=== PATIENT | female | born 1980 | race Caucasian/White ===

== ENCOUNTER 2020-11-04 13:09 | Inpatient (IN) | payer MEDICAID ==
[~2020-11-04] VITALS: Ht 162.6 cm; Wt 68.2 kg
[2020-11-04] MEDS ORDERED: morphine 4 MG/ML inj SYRINge IV ONE (14:20)
[2020-11-04] MEDS ORDERED: normal saline 1000ML IV soln IVB ONE ×2 (14:20→16:15)
[2020-11-04 15:05] LABS: BASOPHILS % (AUTO) 0.1 % (0-1); EOSINOPHILS % (AUTO) 0 % (0-6); HEMATOCRIT 46.8 % (35.0-45.0); HEMOGLOBIN 15.9 g/dl (12.0-16.0); LYMPHOCYTES # (AUTO) 0.3 X10'3 (1.1-4.8); LYMPHOCYTES % (AUTO) 1.2 % (21-51); MEAN CORPUSCULAR HEMOGLOBIN 31.4 PG (27.0-31.0); MEAN CORPUSCULAR HGB CONC 33.9 g/dL (33.0-36.5); MEAN CORPUSCULAR VOLUME 92.6 FL (78-98); MEAN PLATELET VOLUME 7.5 FL (7.4-10.4); MONOCYTES # (AUTO) 0.5 X10'3 (0-0.9); MONOCYTES % (AUTO) 2.3 % (2-12); NEUTROPHILS % (AUTO) 96.4 % (42-75); PLATELET COUNT 244 X10'3 (140-440); RED BLOOD COUNT 5.05 X10'6 (4.20-5.60); RED CELL DISTRIBUTION WIDTH 14.7 % (11.5-14.5); WHITE BLOOD COUNT 21.8 X10'3 (4.5-11.0)
[2020-11-04 15:17] LABS: PARTIAL THROMBOPLASTIN TIME 37 SECONDS (22-32)
[2020-11-04 15:20] LABS: ALANINE AMINOTRANSFERASE 28 U/L (12-78); ALBUMIN 3.1 G/DL (3.4-5.0); ALBUMIN/GLOBULIN RATIO 0.6 (1.1-1.5); ALKALINE PHOSPHATASE 91 IU/L (46-116); ANION GAP 13 (8-16); ASPARTATE AMINO TRANSFERASE 25 U/L (10-37); BILIRUBIN,TOTAL 0.4 MG/DL (0.1-1.0); BLOOD UREA NITROGEN 27 MG/DL (7-18); BUN/CREATININE RATIO 23.5 (6.6-38.0); CALCIUM 8.6 MG/DL (8.5-10.1); CHLORIDE 97 MMOL/L (99-107); CREATININE 1.15 MG/DL (0.40-0.90); GLUCOSE 98 MG/DL (70-104); POTASSIUM 3.7 MMOL/L (3.5-5.1); SODIUM 134 MMOL/L (135-145); TOTAL CARBON DIOXIDE 23.9 MMOL/L (24-32); TOTAL PROTEIN 8.2 G/DL (6.4-8.2); eGFR 52 ML/MIN
--- NOTE | 2020-11-04 15:22 | NUR ---
PATIENT LEFT TO CT SCAN
[2020-11-04 15:23] LABS: ANISOCYTOSIS 1+; PLATELET ESTIMATE NORMAL; TOTAL CELLS COUNTED 100
[2020-11-04 15:29] LABS: ETHANOL < 0.010 GM/DL (0.0-0.010); LIPASE < 50 U/L (73-393); MAGNESIUM 1.6 MG/DL (1.5-2.4); PHOSPHORUS 3.6 MG/DL (2.3-4.5); TROPONIN I < 0.04 NG/ML (0.0-0.05)
[2020-11-04] MEDS ORDERED: normal saline 1000ML IV soln IV ONE (15:30)
[2020-11-04] MEDS ORDERED: CefTRIAXone 2gm/D5W 50ml BAG 50 ML IV ONE ×2 (15:35→16:05)
[2020-11-04] MEDS ORDERED: acetaminophen 325mg tablet PO PRN ×2 (16:45)
[2020-11-04] MEDS ORDERED: mag hydrox/Alum hydrox/simeth 30ml oral suspension PO PRN (16:45)
[2020-11-04] MEDS ORDERED: magnesium 4gm in 100ml NS 100 ML IV PRN (16:45)
[2020-11-04] MEDS ORDERED: magnesium 2GM in 50ml NS 50 ML IV PRN (16:45)
[2020-11-04] MEDS ORDERED: magnesium hydroxide 30ml (MOM) UD suspension PO PRN (16:45)
[2020-11-04] MEDS ORDERED: HYDROcodone/acetaminophen 5mg/325mg tablet PO PRN (16:45)
[2020-11-04] MEDS ORDERED: potassium Cl 20 mEq SR tablet PO PRN (16:45)
[2020-11-04] MEDS ORDERED: potassium Cl 40MEQ/1/2NS 520ml 520 ML IV PRN ×2 (16:45)
[2020-11-04] MEDS: clindamycin 600mg/D5W 50ml 50 ML IV SCH (20:10)
[2020-11-04] MEDS: normal saline 1000ml 1,000 ML IV SCH (20:10)
[2020-11-04] MEDS: K and/or MAG REPLACEMENT MC SCH (20:31)
[2020-11-04 21:11] LABS: CLARITY,URINE CLEAR (Clear); COLOR,URINE YELLOW (Yellow); GLUCOSE, URINE NEGATIVE (Neg); KETONES,URINE 15 mg/dl (Neg); LEUKOCYTE ESTERASE ,URINE NEGATIVE (Neg); NITRITES, URINE NEGATIVE (Neg); OCCULT BLOOD,URINE SMALL (Neg); PROTEIN,URINE 30 mg/dl (Neg); UROBILINOGEN,URINE 0.2 E.U/dL (0.2-1.0)
[2020-11-04 21:31] LABS: BACTERIA,URINE FEW /HPF (Neg); RBC,URINE 0-2 /HPF (0-2); SQUAMOUS EPITHELIAL CELL,UR FEW /LPF (FEW); UA COLLECTION TYPE FOLEY CATH; WBC,URINE 0-4 /HPF (0-4)
--- NOTE | 2020-11-04 21:45 | NUR ---
Patient in room ED 7. I have received report from CHANA FROM ER and had the opportunity to ask questions and assume patient care.
[2020-11-04] MEDS ORDERED: NO HOME MEDS (21:50)
[2020-11-04 21:59] LABS: URINE AMPHETAMINE SCREEN POSITIVE (Neg); URINE BARBITUATE SCREEN NEGATIVE (Neg); URINE BENZODIAZEPINES SCREEN NEGATIVE (Neg); URINE CANNABINOID SCREEN NEGATIVE (Neg); URINE COCAINE SCREEN NEGATIVE (Neg); URINE METHADONE SCREEN NEGATIVE (Neg); URINE OPIATE SCREEN POSITIVE (Neg); URINE PHENCYCLIDINE SCREEN NEGATIVE (Neg)
[2020-11-04 22:00] VITALS: BP 102/69
[2020-11-04] MEDS: HYDROcodone/acetaminophen 10/325mg tab PO PRN (22:20)
--- NOTE | 2020-11-04 22:30 | NUR ---
PATIENT STATES SHE CANNOT OPEN HER EYES. SHE STATES THAT SHE NOTICED HER EYE STARTING CLOSING A COUPLE DAYS AGO. SHE IS FEELING TIRED AND WANTS TO REST.
[2020-11-05 00:04] VITALS: BP 105/63
[2020-11-05] MEDS: clindamycin 600mg/D5W 50ml 50 ML IV SCH ×4 (02:12→20:31)
[2020-11-05] MEDS: normal saline 1000ml 1,000 ML IV SCH ×3 (02:45→19:15)
[2020-11-05] MEDS: HYDROcodone/acetaminophen 10/325mg tab PO PRN ×3 (05:14→22:24)
--- NOTE | 2020-11-05 05:49 | NUR ---
PAGER ID: [phone] MESSAGE: MIGUEL YBARRA- [id number], 345 b, POSITIVE BLOOD CULTURES GM +COCCI PAIRS SHORT CHAINS IN AEROBIC IV START. EXT [id number]
[2020-11-05 06:23] LABS: BASOPHILS % (AUTO) 0.1 % (0-1); EOSINOPHILS # (AUTO) 0.1 X10'3 (0-0.9); EOSINOPHILS % (AUTO) 0.6 % (0-6); HEMATOCRIT 35.7 % (35.0-45.0); HEMOGLOBIN 11.8 g/dl (12.0-16.0); LYMPHOCYTES # (AUTO) 0.5 X10'3 (1.1-4.8); LYMPHOCYTES % (AUTO) 2.5 % (21-51); MEAN CORPUSCULAR HEMOGLOBIN 30.7 PG (27.0-31.0); MEAN PLATELET VOLUME 7.9 FL (7.4-10.4); MONOCYTES # (AUTO) 0.6 X10'3 (0-0.9); MONOCYTES % (AUTO) 3.4 % (2-12); NEUTROPHILS # (AUTO) 17.9 X10'3 (1.8-7.7); NEUTROPHILS % (AUTO) 93.4 % (42-75); PLATELET COUNT 209 X10'3 (140-440); RED BLOOD COUNT 3.84 X10'6 (4.20-5.60); RED CELL DISTRIBUTION WIDTH 14.6 % (11.5-14.5); WHITE BLOOD COUNT 19.1 X10'3 (4.5-11.0)
[2020-11-05 06:30] VITALS: BP 90/52
--- NOTE | 2020-11-05 06:30 | NUR ---
Patient in room [facility]. I have received report from EDDIE Wilson and had the opportunity to ask questions and assume patient care.
--- NOTE | 2020-11-05 06:36 | NUR ---
Problems reprioritized. Patient report given, questions answered & plan of care reviewed with CHANTAL RN.
[2020-11-05 06:48] LABS: ALANINE AMINOTRANSFERASE 20 U/L (12-78); ALBUMIN 2.1 G/DL (3.4-5.0); ALBUMIN/GLOBULIN RATIO 0.5 (1.1-1.5); ALKALINE PHOSPHATASE 78 IU/L (46-116); ANION GAP 7 (8-16); ASPARTATE AMINO TRANSFERASE 16 U/L (10-37); BILIRUBIN,TOTAL 0.3 MG/DL (0.1-1.0); BLOOD UREA NITROGEN 14 MG/DL (7-18); BUN/CREATININE RATIO 15.6 (6.6-38.0); CALCIUM 7.7 MG/DL (8.5-10.1); CHLORIDE 103 MMOL/L (99-107); GLUCOSE 86 MG/DL (70-104); MAGNESIUM 1.8 MG/DL (1.5-2.4); POTASSIUM 3.1 MMOL/L (3.5-5.1); SODIUM 136 MMOL/L (135-145); TOTAL CARBON DIOXIDE 25.7 MMOL/L (24-32); TOTAL PROTEIN 6.2 G/DL (6.4-8.2); eGFR 69 ML/MIN
[2020-11-05 06:52] LABS: TOTAL CELLS COUNTED 100
[2020-11-05 06:54] LABS: BURR CELLS FEW; PLATELET ESTIMATE NORMAL; POLYCHROMASIA FEW
[2020-11-05] MEDS: K and/or MAG REPLACEMENT MC SCH ×2 (07:29→20:00)
[2020-11-05] MEDS ORDERED: vancomycin inj 1,000 MG in normal saline 250ml IV soln 250 ML IV ONE (08:05)
[2020-11-05] MEDS: potassium Cl 20 mEq SR tablet PO PRN ×3 (10:54→21:11)
[2020-11-05 11:00] VITALS: BP 91/60
[2020-11-05] MEDS: vancomycin/NS 1 GM ADD-VANTAGE 250 ML IV SCH ×3 (11:56→21:10)
--- NOTE | 2020-11-05 18:40 | NUR ---
Problems reprioritized. Patient report given, questions answered & plan of care reviewed with Cynthia RN.
[2020-11-05 19:30] VITALS: BP 96/63
[2020-11-05] MEDS: levetiracetam 250mg tablet PO SCH (21:12)
[2020-11-05] MEDS: lactobacillus rhamnosus 10,000 MMU CELLS/CAPSULE PO SCH (21:12)
[2020-11-05] MEDS: polyvinyl alcohol ophthalmic drops 15ml bottle EACHEYE SCH (21:12)
[2020-11-05] MEDS: ondansetron/PF 4mg/2ml inj IV PRN (22:31)
[2020-11-05 23:30] VITALS: BP 92/52
[2020-11-06] MEDS: clindamycin 600mg/D5W 50ml 50 ML IV SCH ×4 (02:11→20:40)
[2020-11-06] MEDS: polyvinyl alcohol ophthalmic drops 15ml bottle EACHEYE SCH ×4 (02:12→20:43)
[2020-11-06] MEDS: HYDROcodone/acetaminophen 10/325mg tab PO PRN ×3 (02:26→23:44)
--- NOTE | 2020-11-06 04:00 | NUR ---
refused neuro checks Addendum: 11/08/20 at 0730 by Vane Vasquez RN Amended: Links added.
--- NOTE | 2020-11-06 06:00 | NUR ---
Patient in room [facility]. I have received report from EDDIE Marie and had the opportunity to ask questions and assume patient care.
[2020-11-06 06:05] LABS: EOSINOPHILS # (AUTO) 0.3 X10'3 (0-0.9); HEMOGLOBIN 10.4 g/dl (12.0-16.0); MEAN PLATELET VOLUME 7.6 FL (7.4-10.4); NEUTROPHILS # (AUTO) 10.7 X10'3 (1.8-7.7)
[2020-11-06 06:09] LABS: BASOPHILS % (AUTO) 0.2 % (0-1); EOSINOPHILS % (AUTO) 2.1 % (0-6); LYMPHOCYTES # (AUTO) 0.9 X10'3 (1.1-4.8); MEAN CORPUSCULAR HEMOGLOBIN 31.6 PG (27.0-31.0); MEAN CORPUSCULAR HGB CONC 33.5 g/dL (33.0-36.5); MEAN CORPUSCULAR VOLUME 94.1 FL (78-98); MONOCYTES # (AUTO) 0.9 X10'3 (0-0.9); MONOCYTES % (AUTO) 6.9 % (2-12); NEUTROPHILS % (AUTO) 83.8 % (42-75); PLATELET COUNT 183 X10'3 (140-440); RED CELL DISTRIBUTION WIDTH 14.8 % (11.5-14.5); WHITE BLOOD COUNT 12.8 X10'3 (4.5-11.0)
[2020-11-06 06:30] LABS: ALANINE AMINOTRANSFERASE 18 U/L (12-78); ALBUMIN 1.8 G/DL (3.4-5.0); ALBUMIN/GLOBULIN RATIO 0.5 (1.1-1.5); ALKALINE PHOSPHATASE 68 IU/L (46-116); ANION GAP 8 (8-16); ASPARTATE AMINO TRANSFERASE 15 U/L (10-37); BILIRUBIN,TOTAL 0.2 MG/DL (0.1-1.0); BLOOD UREA NITROGEN 9 MG/DL (7-18); BUN/CREATININE RATIO 11.8 (6.6-38.0); CALCIUM 7.8 MG/DL (8.5-10.1); CHLORIDE 108 MMOL/L (99-107); CREATININE 0.76 MG/DL (0.40-0.90); GLUCOSE 76 MG/DL (70-104); MAGNESIUM 2.2 MG/DL (1.5-2.4); POTASSIUM 3.5 MMOL/L (3.5-5.1); SODIUM 140 MMOL/L (135-145); TOTAL CARBON DIOXIDE 23.7 MMOL/L (24-32); TOTAL PROTEIN 5.6 G/DL (6.4-8.2); eGFR 83 ML/MIN
[2020-11-06 07:00] VITALS: BP 102/67
[2020-11-06] MEDS: lactobacillus rhamnosus 10,000 MMU CELLS/CAPSULE PO SCH ×2 (07:27→20:42)
[2020-11-06] MEDS: levetiracetam 250mg tablet PO SCH ×2 (07:27→20:42)
[2020-11-06] MEDS: normal saline 1000ml 1,000 ML IV SCH ×2 (07:36→19:13)
[2020-11-06] MEDS: K and/or MAG REPLACEMENT MC SCH ×2 (08:00→20:00)
[2020-11-06] MEDS: vancomycin/NS 1 GM ADD-VANTAGE 250 ML IV SCH ×2 (09:56→21:09)
[2020-11-06 11:00] VITALS: BP 114/70
--- NOTE | 2020-11-06 18:30 | NUR ---
Problems reprioritized. Patient report given, questions answered & plan of care reviewed with EDDIE John.
--- NOTE | 2020-11-06 18:33 | NUR ---
Patient in room [facility]. I have received report from COLLEEN MORGAN and had the opportunity to ask questions and assume patient care. Addendum: 11/06/20 at 1834 by Dora Costa RN Amended: Links added.
[2020-11-06 19:00] VITALS: BP 128/98
[2020-11-06 19:30] VITALS: BP 128/98
[2020-11-06] MEDS ORDERED: VANCOMYCIN LEVEL IV ONE (19:30)
--- NOTE | 2020-11-06 20:15 | NUR ---
pt a/o medicated as ordered and skin care to eye area after using eye drops. then per pt request vaseline guaze to eyes due to dryness and swelling
--- NOTE | 2020-11-06 21:20 | NUR ---
pt resting on side eyes closed.
[2020-11-06] MEDS ORDERED: vancomycin/NS 500MG ADD-VANT 100 ML IV ONE (23:25)
--- NOTE | 2020-11-06 23:46 | NUR ---
MEDICATED FOR C/O SEVERE HEADACHE WITH NORCO AT THIS TIME.
[2020-11-07] VITALS: BP 120/83
--- NOTE | 2020-11-07 01:05 | NUR ---
pt resting eyes closed appears comfortable without changes.
[2020-11-07] MEDS: clindamycin 600mg/D5W 50ml 50 ML IV SCH ×4 (02:17→20:08)
[2020-11-07] MEDS: polyvinyl alcohol ophthalmic drops 15ml bottle EACHEYE SCH ×4 (02:18→21:13)
--- NOTE | 2020-11-07 02:24 | NUR ---
abx infusing and eye care done as ordered.
[2020-11-07] MEDS: normal saline 1000ml 1,000 ML IV SCH ×2 (05:04→14:50)
[2020-11-07 05:54] LABS: BASOPHILS % (AUTO) 0.3 % (0-1); EOSINOPHILS # (AUTO) 0.2 X10'3 (0-0.9); EOSINOPHILS % (AUTO) 3.5 % (0-6); HEMATOCRIT 31.9 % (35.0-45.0); HEMOGLOBIN 10.9 g/dl (12.0-16.0); LYMPHOCYTES % (AUTO) 14.2 % (21-51); MEAN CORPUSCULAR HEMOGLOBIN 31.5 PG (27.0-31.0); MEAN CORPUSCULAR HGB CONC 34.2 g/dL (33.0-36.5); MEAN CORPUSCULAR VOLUME 92.4 FL (78-98); MEAN PLATELET VOLUME 7.7 FL (7.4-10.4); MONOCYTES % (AUTO) 13.8 % (2-12); NEUTROPHILS # (AUTO) 4.9 X10'3 (1.8-7.7); NEUTROPHILS % (AUTO) 68.2 % (42-75); PLATELET COUNT 195 X10'3 (140-440); RED BLOOD COUNT 3.45 X10'6 (4.20-5.60); RED CELL DISTRIBUTION WIDTH 14.2 % (11.5-14.5); WHITE BLOOD COUNT 7.1 X10'3 (4.5-11.0)
--- NOTE | 2020-11-07 06:00 | NUR ---
Patient in room [facility]. I have received report from EDDIE John and had the opportunity to ask questions and assume patient care.
--- NOTE | 2020-11-07 06:04 | NUR ---
Problems reprioritized. Patient report given, questions answered & plan of care reviewed with COLLEEN MORGAN. Addendum: 11/07/20 at 0604 by Dora Costa RN Amended: Links added.
[2020-11-07 06:12] LABS: ALANINE AMINOTRANSFERASE 23 U/L (12-78); ALBUMIN 1.8 G/DL (3.4-5.0); ALBUMIN/GLOBULIN RATIO 0.4 (1.1-1.5); ALKALINE PHOSPHATASE 73 IU/L (46-116); ANION GAP 8 (8-16); ASPARTATE AMINO TRANSFERASE 19 U/L (10-37); BILIRUBIN,TOTAL 0.2 MG/DL (0.1-1.0); BLOOD UREA NITROGEN 8 MG/DL (7-18); BUN/CREATININE RATIO 12.3 (6.6-38.0); CALCIUM 7.9 MG/DL (8.5-10.1); CHLORIDE 108 MMOL/L (99-107); CREATININE 0.65 MG/DL (0.40-0.90); GLUCOSE 89 MG/DL (70-104); MAGNESIUM 1.8 MG/DL (1.5-2.4); POTASSIUM 3.4 MMOL/L (3.5-5.1); SODIUM 140 MMOL/L (135-145); TOTAL CARBON DIOXIDE 24.4 MMOL/L (24-32); TOTAL PROTEIN 5.9 G/DL (6.4-8.2); eGFR > 90 ML/MIN
[2020-11-07 07:00] VITALS: BP 108/80
[2020-11-07] MEDS: ondansetron/PF 4mg/2ml inj IV PRN (07:05)
[2020-11-07] MEDS: levetiracetam 250mg tablet PO SCH ×2 (07:08→20:09)
[2020-11-07] MEDS: lactobacillus rhamnosus 10,000 MMU CELLS/CAPSULE PO SCH ×2 (07:08→20:08)
[2020-11-07] MEDS: HYDROcodone/acetaminophen 10/325mg tab PO PRN ×2 (07:08→20:12)
[2020-11-07] MEDS: K and/or MAG REPLACEMENT MC SCH ×4 (08:52→20:17)
[2020-11-07 11:00] VITALS: BP 132/96
[2020-11-07] MEDS: potassium Cl 20 mEq SR tablet PO PRN (12:30)
[2020-11-07] MEDS ORDERED: potassium Cl 40MEQ/1/2NS 520ml 520 ML IV PRN (18:00)
[2020-11-07] MEDS ORDERED: potassium Cl 20 mEq SR tablet PO PRN ×2 (18:00)
[2020-11-07] MEDS ORDERED: magnesium 4gm in 100ml NS 100 ML IV PRN (18:00)
--- NOTE | 2020-11-07 18:33 | NUR ---
Problems reprioritized. Patient report given, questions answered & plan of care reviewed with Cynthia RN.
--- NOTE | 2020-11-07 18:45 | NUR ---
kirti ashby in room; pt states she ate most everything Addendum: 11/08/20 at 0723 by Vane Vasquez RN Amended: Links added.
[2020-11-07 20:00] VITALS: BP 128/79
[2020-11-07] MEDS: moxifloxacin 0.5% ophthalmic drops 3ml EACHEYE SCH (21:12)
[2020-11-08] VITALS: BP 131/87
[2020-11-08] MEDS: normal saline 1000ml 1,000 ML IV SCH ×3 (00:45→20:40)
[2020-11-08] MEDS: HYDROcodone/acetaminophen 10/325mg tab PO PRN ×5 (00:52→20:40)
[2020-11-08] MEDS: penicillin G potassium inj 2,000,000 UNIT in normal saline 100ml IV soln 100 ML IV SCH ×7 (00:52→23:52)
[2020-11-08] MEDS: polyvinyl alcohol ophthalmic drops 15ml bottle EACHEYE SCH ×4 (02:00→20:40)
[2020-11-08 06:22] LABS: BASOPHILS % (AUTO) 0.5 % (0-1); EOSINOPHILS # (AUTO) 0.2 X10'3 (0-0.9); EOSINOPHILS % (AUTO) 2.6 % (0-6); HEMATOCRIT 35.6 % (35.0-45.0); LYMPHOCYTES # (AUTO) 1.1 X10'3 (1.1-4.8); LYMPHOCYTES % (AUTO) 16.4 % (21-51); MEAN CORPUSCULAR HEMOGLOBIN 30.7 PG (27.0-31.0); MEAN CORPUSCULAR HGB CONC 33.7 g/dL (33.0-36.5); MEAN CORPUSCULAR VOLUME 91.1 FL (78-98); MEAN PLATELET VOLUME 7.9 FL (7.4-10.4); MONOCYTES # (AUTO) 1.4 X10'3 (0-0.9); MONOCYTES % (AUTO) 21.2 % (2-12); NEUTROPHILS # (AUTO) 3.9 X10'3 (1.8-7.7); NEUTROPHILS % (AUTO) 59.3 % (42-75); PLATELET COUNT 225 X10'3 (140-440); RED BLOOD COUNT 3.91 X10'6 (4.20-5.60); RED CELL DISTRIBUTION WIDTH 14.8 % (11.5-14.5); WHITE BLOOD COUNT 6.6 X10'3 (4.5-11.0)
[2020-11-08 06:34] LABS: ALANINE AMINOTRANSFERASE 20 U/L (12-78); ALBUMIN 1.9 G/DL (3.4-5.0); ALBUMIN/GLOBULIN RATIO 0.4 (1.1-1.5); ALKALINE PHOSPHATASE 71 IU/L (46-116); ANION GAP 6 (8-16); ASPARTATE AMINO TRANSFERASE 12 U/L (10-37); BILIRUBIN,TOTAL 0.2 MG/DL (0.1-1.0); BLOOD UREA NITROGEN 5 MG/DL (7-18); BUN/CREATININE RATIO 8.3 (6.6-38.0); CHLORIDE 107 MMOL/L (99-107); GLUCOSE 93 MG/DL (70-104); MAGNESIUM 1.7 MG/DL (1.5-2.4); POTASSIUM 3.9 MMOL/L (3.5-5.1); SODIUM 139 MMOL/L (135-145); TOTAL CARBON DIOXIDE 26.4 MMOL/L (24-32); TOTAL PROTEIN 6.2 G/DL (6.4-8.2); eGFR > 90 ML/MIN
[2020-11-08 07:28] VITALS: BP 138/82
[2020-11-08] MEDS ORDERED: VANCOMYCIN LEVEL IV ONE (07:30)
[2020-11-08] MEDS: K and/or MAG REPLACEMENT MC SCH ×3 (08:00→20:00)
[2020-11-08] MEDS: levetiracetam 250mg tablet PO SCH ×2 (08:11→20:41)
[2020-11-08] MEDS: lactobacillus rhamnosus 10,000 MMU CELLS/CAPSULE PO SCH ×2 (08:11→20:40)
[2020-11-08] MEDS: moxifloxacin 0.5% ophthalmic drops 3ml EACHEYE SCH ×2 (08:11→20:41)
[2020-11-08] MEDS: HYDROmorphone inj. 0.5 MG/0.5 ML DISP.SYRIN IV PRN ×4 (08:14→23:53)
--- NOTE | 2020-11-08 11:02 | NUR ---
Haley primary RN called Dr Rukhsana Corey to clarify that they wanted to CT obits to be done with or without contrast. Dr Corey called back is aware of patient kidney function and would like CT done with IV contrast. Primary RN Haley murray and Lesvia with CT aware they will modify the order. Haley murray to send down CT screening form.
[2020-11-08] MEDS ORDERED: iohexol 300mg/ml 100ml inj. ONE (11:03)
[2020-11-08 11:48] VITALS: BP 146/95
--- NOTE | 2020-11-08 14:38 | NUR ---
PAGER ID: [phone] MESSAGE: Jo Ann Walton 345B Pt. has not had a BM since 1-2. Will give MOM but can she has BID docusate please? Taking many opiates r/t pain. Thank you! Haley [phone]
--- NOTE | 2020-11-08 18:30 | NUR ---
Patient in room [facility]. I have received report from EDDIE De Leon and had the opportunity to ask questions and assume patient care. Addendum: 11/08/20 at 1905 by Brie Wilcox RN Amended: Links added.
--- NOTE | 2020-11-08 18:32 | NUR ---
Gave report to Yulia MORGAN.
[2020-11-08 19:30] VITALS: BP 149/90
[2020-11-09] VITALS: BP 148/88
[2020-11-09] MEDS: polyvinyl alcohol ophthalmic drops 15ml bottle EACHEYE SCH ×5 (02:00→20:08)
[2020-11-09] MEDS: HYDROmorphone inj. 0.5 MG/0.5 ML DISP.SYRIN IV PRN (03:38)
[2020-11-09] MEDS: penicillin G potassium inj 2,000,000 UNIT in normal saline 100ml IV soln 100 ML IV SCH ×5 (03:38→21:19)
[2020-11-09] MEDS: normal saline 1000ml 1,000 ML IV SCH ×2 (05:49→18:54)
[2020-11-09] MEDS: HYDROcodone/acetaminophen 10/325mg tab PO PRN ×4 (05:50→22:48)
--- NOTE | 2020-11-09 06:35 | NUR ---
Problems reprioritized. Patient report given, questions answered & plan of care reviewed with EDDIE JOSHI Addendum: 11/09/20 at 0636 by Brie Wilcox RN Amended: Links added.
--- NOTE | 2020-11-09 06:49 | NUR ---
Patient in room [facility]. I have received report from Sharee MORGAN and had the opportunity to ask questions and assume patient care.
[2020-11-09 08:00] VITALS: BP 149/88
[2020-11-09] MEDS: K and/or MAG REPLACEMENT MC SCH ×4 (08:00→20:00)
[2020-11-09 08:01] LABS: BASOPHILS # (AUTO) 0.1 X10'3 (0-0.2); BASOPHILS % (AUTO) 0.7 % (0-1); EOSINOPHILS # (AUTO) 0.2 X10'3 (0-0.9); EOSINOPHILS % (AUTO) 2.7 % (0-6); HEMATOCRIT 37.6 % (35.0-45.0); HEMOGLOBIN 12.9 g/dl (12.0-16.0); LYMPHOCYTES # (AUTO) 1.1 X10'3 (1.1-4.8); LYMPHOCYTES % (AUTO) 14.7 % (21-51); MEAN CORPUSCULAR HEMOGLOBIN 31.4 PG (27.0-31.0); MEAN CORPUSCULAR HGB CONC 34.2 g/dL (33.0-36.5); MEAN CORPUSCULAR VOLUME 91.8 FL (78-98); MEAN PLATELET VOLUME 7.8 FL (7.4-10.4); MONOCYTES # (AUTO) 1.1 X10'3 (0-0.9); MONOCYTES % (AUTO) 14.9 % (2-12); NEUTROPHILS # (AUTO) 5.1 X10'3 (1.8-7.7); PLATELET COUNT 289 X10'3 (140-440); RED CELL DISTRIBUTION WIDTH 14.7 % (11.5-14.5); WHITE BLOOD COUNT 7.7 X10'3 (4.5-11.0)
[2020-11-09 08:16] LABS: ALANINE AMINOTRANSFERASE 19 U/L (12-78); ALBUMIN/GLOBULIN RATIO 0.4 (1.1-1.5); ALKALINE PHOSPHATASE 72 IU/L (46-116); ASPARTATE AMINO TRANSFERASE 15 U/L (10-37); BILIRUBIN,TOTAL 0.2 MG/DL (0.1-1.0); BLOOD UREA NITROGEN 6 MG/DL (7-18); BUN/CREATININE RATIO 11.3 (6.6-38.0); CALCIUM 8.5 MG/DL (8.5-10.1); CREATININE 0.53 MG/DL (0.40-0.90); GLUCOSE 92 MG/DL (70-104); MAGNESIUM 1.9 MG/DL (1.5-2.4); TOTAL CARBON DIOXIDE 25.6 MMOL/L (24-32); TOTAL PROTEIN 6.6 G/DL (6.4-8.2); eGFR > 90 ML/MIN
[2020-11-09] MEDS: levetiracetam 250mg tablet PO SCH ×2 (08:30→20:03)
[2020-11-09] MEDS: lactobacillus rhamnosus 10,000 MMU CELLS/CAPSULE PO SCH ×2 (08:30→20:03)
[2020-11-09] MEDS: heparin, porcine 5000 units/ml vial SQ SCH ×2 (08:33→20:03)
[2020-11-09] MEDS: moxifloxacin 0.5% ophthalmic drops 3ml EACHEYE SCH ×2 (08:36→20:12)
[2020-11-09 08:47] LABS: ANION GAP 8 (8-16); CHLORIDE 103 MMOL/L (99-107); POTASSIUM 4.1 MMOL/L (3.5-5.1); SODIUM 137 MMOL/L (135-145)
[2020-11-09 09:13] LABS: PLATELET ESTIMATE NORMAL; TOTAL CELLS COUNTED 100
[2020-11-09 11:00] VITALS: BP 141/91
[2020-11-09] MEDS: erythromycin ophthalmic ointment 1gm tube EACHEYE SCH ×4 (11:16→20:10)
--- NOTE | 2020-11-09 17:01 | NUR ---
Initial: Pt had seizure 11/06 and had significant face swelling per physician's notes. Pt has difficulty with vision due top swollen eyes and on mechanical chopped diet per HAND TACKER assessment. Pt seems to be constipated, last BM 11/04. Pt average PO intake is <50% within 3 days, not meeting nutritional needs. Continue mechanical soft diet per HAND TACKER's notes. Continue bowel care as needed. Charles smoothie added to meals as requested by pt.Pt reported she has a good appetite during bedside visit. Feeding assistance not needed as stated by the pt and was validated by the bed side nurse. Addendum: 11/09/20 at 1701 by Chriss Cam RECORD TESTER RD Amended: Links added. Addendum: 11/09/20 at [address] agree with digital media intern note
[2020-11-09 18:00] VITALS: BP 124/78
--- NOTE | 2020-11-09 18:43 | NUR ---
Patient in room [facility]. I have received report from EDDIE Cole and had the opportunity to ask questions and assume patient care.
--- NOTE | 2020-11-09 18:43 | NUR ---
Problems reprioritized. Patient report given, questions answered & plan of care reviewed with Jose Angel MORGAN.
[2020-11-10] VITALS: BP 135/89
[2020-11-10] MEDS: penicillin G potassium inj 2,000,000 UNIT in normal saline 100ml IV soln 100 ML IV SCH ×6 (01:12→20:56)
[2020-11-10] MEDS: HYDROcodone/acetaminophen 10/325mg tab PO PRN ×2 (02:54→21:00)
[2020-11-10] MEDS: erythromycin ophthalmic ointment 1gm tube EACHEYE SCH ×4 (02:59→20:58)
[2020-11-10] MEDS: polyvinyl alcohol ophthalmic drops 15ml bottle EACHEYE SCH ×4 (03:00→20:58)
--- NOTE | 2020-11-10 06:40 | NUR ---
Problems reprioritized. Patient report given, questions answered & plan of care reviewed with EDDIE Mcmullen.
[2020-11-10 07:00] VITALS: BP 144/94
[2020-11-10 07:03] LABS: ALANINE AMINOTRANSFERASE 17 U/L (12-78); ALBUMIN/GLOBULIN RATIO 0.4 (1.1-1.5); ALKALINE PHOSPHATASE 65 IU/L (46-116); ANION GAP 9 (8-16); ASPARTATE AMINO TRANSFERASE 13 U/L (10-37); BILIRUBIN,TOTAL 0.2 MG/DL (0.1-1.0); BLOOD UREA NITROGEN 8 MG/DL (7-18); BUN/CREATININE RATIO 12.3 (6.6-38.0); CALCIUM 8.8 MG/DL (8.5-10.1); CHLORIDE 106 MMOL/L (99-107); CREATININE 0.65 MG/DL (0.40-0.90); GLUCOSE 93 MG/DL (70-104); MAGNESIUM 1.9 MG/DL (1.5-2.4); PHOSPHORUS 3.1 MG/DL (2.3-4.5); SODIUM 139 MMOL/L (135-145); TOTAL CARBON DIOXIDE 24.3 MMOL/L (24-32); TOTAL PROTEIN 6.5 G/DL (6.4-8.2); eGFR > 90 ML/MIN
[2020-11-10 07:46] LABS: BASOPHILS # (AUTO) 0.1 X10'3 (0-0.2); BASOPHILS % (AUTO) 0.8 % (0-1); EOSINOPHILS # (AUTO) 0.2 X10'3 (0-0.9); EOSINOPHILS % (AUTO) 3.8 % (0-6); HEMATOCRIT 38.4 % (35.0-45.0); HEMOGLOBIN 13.1 g/dl (12.0-16.0); LYMPHOCYTES # (AUTO) 1.6 X10'3 (1.1-4.8); LYMPHOCYTES % (AUTO) 24.6 % (21-51); MEAN CORPUSCULAR HEMOGLOBIN 31.5 PG (27.0-31.0); MEAN CORPUSCULAR HGB CONC 34.1 g/dL (33.0-36.5); MEAN CORPUSCULAR VOLUME 92.4 FL (78-98); MONOCYTES # (AUTO) 0.7 X10'3 (0-0.9); MONOCYTES % (AUTO) 10.4 % (2-12); NEUTROPHILS % (AUTO) 60.4 % (42-75); PLATELET COUNT 346 X10'3 (140-440); RED BLOOD COUNT 4.16 X10'6 (4.20-5.60); RED CELL DISTRIBUTION WIDTH 14.8 % (11.5-14.5); WHITE BLOOD COUNT 6.6 X10'3 (4.5-11.0)
[2020-11-10] MEDS: K and/or MAG REPLACEMENT MC SCH ×4 (08:00→20:00)
[2020-11-10] MEDS: levetiracetam 250mg tablet PO SCH ×2 (08:13→20:57)
[2020-11-10] MEDS: lactobacillus rhamnosus 10,000 MMU CELLS/CAPSULE PO SCH ×2 (08:13→20:57)
[2020-11-10] MEDS: heparin, porcine 5000 units/ml vial SQ SCH ×2 (08:14→20:57)
[2020-11-10] MEDS: moxifloxacin 0.5% ophthalmic drops 3ml EACHEYE SCH ×2 (08:17→20:58)
[2020-11-10 09:01] LABS: PLATELET ESTIMATE NORMAL; TOTAL CELLS COUNTED 100
[2020-11-10 11:00] VITALS: BP 116/77
[2020-11-10] MEDS: normal saline 1000ml 1,000 ML IV SCH (16:03)
[2020-11-10 18:00] VITALS: BP 160/89
--- NOTE | 2020-11-10 18:15 | NUR ---
Patient in room [facility]. I have received report from Kemi MORGAN and had the opportunity to ask questions and assume patient care.
[2020-11-11] VITALS: BP 145/73
[2020-11-11] MEDS: penicillin G potassium inj 2,000,000 UNIT in normal saline 100ml IV soln 100 ML IV SCH ×7 (00:54→23:55)
[2020-11-11] MEDS: HYDROcodone/acetaminophen 10/325mg tab PO PRN ×3 (01:00→20:54)
[2020-11-11] MEDS: polyvinyl alcohol ophthalmic drops 15ml bottle EACHEYE SCH ×5 (01:02→20:57)
[2020-11-11 06:25] LABS: HEMOGLOBIN 12.6 g/dl (12.0-16.0); MONOCYTES # (AUTO) 0.5 X10'3 (0-0.9)
[2020-11-11 06:29] LABS: BASOPHILS # (AUTO) 0.1 X10'3 (0-0.2); BASOPHILS % (AUTO) 0.8 % (0-1); EOSINOPHILS # (AUTO) 0.3 X10'3 (0-0.9); EOSINOPHILS % (AUTO) 4.7 % (0-6); HEMATOCRIT 36.5 % (35.0-45.0); LYMPHOCYTES % (AUTO) 30.3 % (21-51); MEAN CORPUSCULAR HEMOGLOBIN 31.6 PG (27.0-31.0); MEAN CORPUSCULAR HGB CONC 34.4 g/dL (33.0-36.5); MEAN CORPUSCULAR VOLUME 91.9 FL (78-98); MEAN PLATELET VOLUME 7.5 FL (7.4-10.4); MONOCYTES % (AUTO) 6.7 % (2-12); NEUTROPHILS # (AUTO) 3.9 X10'3 (1.8-7.7); NEUTROPHILS % (AUTO) 57.5 % (42-75); PLATELET COUNT 395 X10'3 (140-440); RED BLOOD COUNT 3.97 X10'6 (4.20-5.60); RED CELL DISTRIBUTION WIDTH 14.8 % (11.5-14.5); WHITE BLOOD COUNT 6.7 X10'3 (4.5-11.0)
--- NOTE | 2020-11-11 06:34 | NUR ---
Problems reprioritized. Patient report given, questions answered & plan of care reviewed with Kemi MORGAN.
--- NOTE | 2020-11-11 06:35 | NUR ---
Patient in room [facility]. I have received report from LUBNA MORGAN and had the opportunity to ask questions and assume patient care.
[2020-11-11 06:57] LABS: ALANINE AMINOTRANSFERASE 18 U/L (12-78); ALBUMIN 2.1 G/DL (3.4-5.0); ALBUMIN/GLOBULIN RATIO 0.5 (1.1-1.5); ALKALINE PHOSPHATASE 61 IU/L (46-116); ANION GAP 8 (8-16); ASPARTATE AMINO TRANSFERASE 16 U/L (10-37); BILIRUBIN,TOTAL 0.2 MG/DL (0.1-1.0); BLOOD UREA NITROGEN 11 MG/DL (7-18); CALCIUM 8.4 MG/DL (8.5-10.1); CHLORIDE 105 MMOL/L (99-107); CREATININE 0.61 MG/DL (0.40-0.90); GLUCOSE 84 MG/DL (70-104); MAGNESIUM 1.8 MG/DL (1.5-2.4); POTASSIUM 4.2 MMOL/L (3.5-5.1); SODIUM 138 MMOL/L (135-145); TOTAL PROTEIN 6.5 G/DL (6.4-8.2); eGFR > 90 ML/MIN
[2020-11-11 07:00] VITALS: BP 144/97
[2020-11-11 07:45] LABS: ANISOCYTOSIS 1+; PLATELET ESTIMATE NORMAL; TOTAL CELLS COUNTED 100
--- NOTE | 2020-11-11 07:49 | NUR ---
PAGED DR OBANDO RE: PAGER ID: [phone] MESSAGE: MIGUEL YBARRA. R EYE DRAINAGE CULTURE +MRSA. PT MOVED TO 352. [facility] 2801
[2020-11-11] MEDS: K and/or MAG REPLACEMENT MC SCH ×4 (08:00→20:00)
[2020-11-11] MEDS: lactobacillus rhamnosus 10,000 MMU CELLS/CAPSULE PO SCH ×2 (08:44→20:53)
[2020-11-11] MEDS: levetiracetam 250mg tablet PO SCH ×2 (08:45→20:54)
[2020-11-11] MEDS: heparin, porcine 5000 units/ml vial SQ SCH ×2 (08:45→20:53)
[2020-11-11] MEDS: moxifloxacin 0.5% ophthalmic drops 3ml EACHEYE SCH ×2 (08:46→20:56)
[2020-11-11] MEDS: erythromycin ophthalmic ointment 1gm tube EACHEYE SCH ×4 (08:47→20:57)
[2020-11-11 11:00] VITALS: BP 118/75
[2020-11-11] MEDS: normal saline 1000ml 1,000 ML IV SCH (12:26)
[2020-11-11] MEDS: vancomycin/NS 1 GM ADD-VANTAGE 250 ML IV SCH (13:55)
--- NOTE | 2020-11-11 18:10 | NUR ---
Patient in room [facility]. I have received report from Kemi MORGAN and had the opportunity to ask questions and assume patient care.
[2020-11-11 19:00] VITALS: BP 124/82
[2020-11-12 00:14] VITALS: BP 125/77
[2020-11-12] MEDS: vancomycin/NS 1 GM ADD-VANTAGE 250 ML IV SCH ×2 (01:29→14:17)
[2020-11-12] MEDS: penicillin G potassium inj 2,000,000 UNIT in normal saline 100ml IV soln 100 ML IV SCH ×5 (03:51→20:41)
--- NOTE | 2020-11-12 06:00 | NUR ---
Patient in room [facility]. I have received report from EDDIE Butcher and had the opportunity to ask questions and assume patient care.
--- NOTE | 2020-11-12 06:00 | NUR ---
Patient in room [facility]. I have received report from EDDIE Millan and had the opportunity to ask questions and assume patient care. Addendum: 11/12/20 at 1842 by Benson Valderrama RN Addendum, report given to EDDIE Noble at 1800
--- NOTE | 2020-11-12 06:24 | NUR ---
Problems reprioritized. Patient report given, questions answered & plan of care reviewed with Benson MORGAN.
[2020-11-12 07:09] LABS: BASOPHILS # (AUTO) 0.1 X10'3 (0-0.2); BASOPHILS % (AUTO) 1.2 % (0-1); EOSINOPHILS # (AUTO) 0.3 X10'3 (0-0.9); EOSINOPHILS % (AUTO) 4.4 % (0-6); HEMATOCRIT 37.4 % (35.0-45.0); HEMOGLOBIN 12.7 g/dl (12.0-16.0); MEAN CORPUSCULAR HEMOGLOBIN 31.3 PG (27.0-31.0); MEAN CORPUSCULAR VOLUME 92.2 FL (78-98); MEAN PLATELET VOLUME 7.4 FL (7.4-10.4); MONOCYTES # (AUTO) 0.5 X10'3 (0-0.9); MONOCYTES % (AUTO) 7.1 % (2-12); NEUTROPHILS # (AUTO) 3.7 X10'3 (1.8-7.7); NEUTROPHILS % (AUTO) 57.3 % (42-75); PLATELET COUNT 460 X10'3 (140-440); RED BLOOD COUNT 4.06 X10'6 (4.20-5.60); RED CELL DISTRIBUTION WIDTH 14.7 % (11.5-14.5); WHITE BLOOD COUNT 6.5 X10'3 (4.5-11.0)
[2020-11-12 07:12] LABS: ALANINE AMINOTRANSFERASE 29 U/L (12-78); ALBUMIN 2.3 G/DL (3.4-5.0); ALBUMIN/GLOBULIN RATIO 0.5 (1.1-1.5); ALKALINE PHOSPHATASE 62 IU/L (46-116); ANION GAP 8 (8-16); ASPARTATE AMINO TRANSFERASE 29 U/L (10-37); BILIRUBIN,TOTAL 0.1 MG/DL (0.1-1.0); BLOOD UREA NITROGEN 11 MG/DL (7-18); BUN/CREATININE RATIO 16.2 (6.6-38.0); CALCIUM 8.6 MG/DL (8.5-10.1); CHLORIDE 105 MMOL/L (99-107); CREATININE 0.68 MG/DL (0.40-0.90); GLUCOSE 85 MG/DL (70-104); PHOSPHORUS 2.7 MG/DL (2.3-4.5); POTASSIUM 4.1 MMOL/L (3.5-5.1); SODIUM 140 MMOL/L (135-145); TOTAL CARBON DIOXIDE 26.7 MMOL/L (24-32); TOTAL PROTEIN 6.8 G/DL (6.4-8.2); eGFR > 90 ML/MIN
[2020-11-12] MEDS: levetiracetam 250mg tablet PO SCH ×2 (07:27→20:49)
[2020-11-12] MEDS: lactobacillus rhamnosus 10,000 MMU CELLS/CAPSULE PO SCH ×2 (07:28→20:48)
[2020-11-12] MEDS: heparin, porcine 5000 units/ml vial SQ SCH ×2 (07:28→20:48)
[2020-11-12] MEDS: polyvinyl alcohol ophthalmic drops 15ml bottle EACHEYE SCH ×3 (07:28→20:41)
[2020-11-12] MEDS: moxifloxacin 0.5% ophthalmic drops 3ml EACHEYE SCH ×2 (07:29→20:41)
[2020-11-12] MEDS: erythromycin ophthalmic ointment 1gm tube EACHEYE SCH ×4 (07:29→20:53)
[2020-11-12] MEDS: normal saline 1000ml 1,000 ML IV SCH (07:32)
[2020-11-12 08:00] VITALS: BP 99/59
[2020-11-12] MEDS: K and/or MAG REPLACEMENT MC SCH ×3 (08:00→20:00)
[2020-11-12 10:00] VITALS: BP 116/83
[2020-11-12 19:00] VITALS: BP 127/91
[2020-11-12] MEDS: ondansetron/PF 4mg/2ml inj IV PRN (19:35)
[2020-11-12] MEDS: HYDROcodone/acetaminophen 10/325mg tab PO PRN (23:22)
[2020-11-13] MEDS: penicillin G potassium inj 2,000,000 UNIT in normal saline 100ml IV soln 100 ML IV SCH ×4 (00:13→13:28)
[2020-11-13 00:16] VITALS: BP 109/55
[2020-11-13] MEDS ORDERED: VANCOMYCIN LEVEL IV ONE ×2 (00:30→12:30)
[2020-11-13] MEDS: vancomycin/NS 1 GM ADD-VANTAGE 250 ML IV SCH ×2 (01:40→13:29)
[2020-11-13] MEDS: polyvinyl alcohol ophthalmic drops 15ml bottle EACHEYE SCH ×3 (01:56→14:00)
[2020-11-13] MEDS: normal saline 1000ml 1,000 ML IV SCH ×2 (01:59→13:31)
--- NOTE | 2020-11-13 06:43 | NUR ---
Problems reprioritized. Patient report given, questions answered & plan of care reviewed with MADELYN. Addendum: 11/13/20 at 0643 by Isaiah England RN Amended: Links added.
--- NOTE | 2020-11-13 06:45 | NUR ---
Patient in room [facility]. I have received report from Real Williamson and had the opportunity to ask questions and assume patient care.
[2020-11-13 06:48] LABS: BASOPHILS # (AUTO) 0.1 X10'3 (0-0.2); BASOPHILS % (AUTO) 0.8 % (0-1); EOSINOPHILS # (AUTO) 0.2 X10'3 (0-0.9); EOSINOPHILS % (AUTO) 3.7 % (0-6); HEMATOCRIT 35.4 % (35.0-45.0); HEMOGLOBIN 12.1 g/dl (12.0-16.0); LYMPHOCYTES # (AUTO) 2.1 X10'3 (1.1-4.8); LYMPHOCYTES % (AUTO) 33.2 % (21-51); MEAN CORPUSCULAR HEMOGLOBIN 31.6 PG (27.0-31.0); MEAN CORPUSCULAR HGB CONC 34.2 g/dL (33.0-36.5); MEAN CORPUSCULAR VOLUME 92.6 FL (78-98); MEAN PLATELET VOLUME 7.5 FL (7.4-10.4); MONOCYTES # (AUTO) 0.4 X10'3 (0-0.9); MONOCYTES % (AUTO) 6.5 % (2-12); NEUTROPHILS # (AUTO) 3.5 X10'3 (1.8-7.7); NEUTROPHILS % (AUTO) 55.8 % (42-75); PLATELET COUNT 469 X10'3 (140-440); RED BLOOD COUNT 3.82 X10'6 (4.20-5.60); RED CELL DISTRIBUTION WIDTH 14.9 % (11.5-14.5); WHITE BLOOD COUNT 6.3 X10'3 (4.5-11.0)
[2020-11-13 07:00] VITALS: BP 110/63
[2020-11-13 07:25] LABS: ALANINE AMINOTRANSFERASE 34 U/L (12-78); ALBUMIN 2.2 G/DL (3.4-5.0); ALBUMIN/GLOBULIN RATIO 0.5 (1.1-1.5); ALKALINE PHOSPHATASE 57 IU/L (46-116); ANION GAP 8 (8-16); ASPARTATE AMINO TRANSFERASE 28 U/L (10-37); BILIRUBIN,TOTAL 0.2 MG/DL (0.1-1.0); BLOOD UREA NITROGEN 10 MG/DL (7-18); BUN/CREATININE RATIO 14.5 (6.6-38.0); CALCIUM 8.2 MG/DL (8.5-10.1); CHLORIDE 106 MMOL/L (99-107); CREATININE 0.69 MG/DL (0.40-0.90); GLUCOSE 78 MG/DL (70-104); POTASSIUM 3.9 MMOL/L (3.5-5.1); SODIUM 140 MMOL/L (135-145); TOTAL CARBON DIOXIDE 26.2 MMOL/L (24-32); TOTAL PROTEIN 6.4 G/DL (6.4-8.2); eGFR > 90 ML/MIN
[2020-11-13 07:28] LABS: VANCOMYCIN,TROUGH 23.5 UG/ML (6.0-14.0)
[2020-11-13] MEDS: K and/or MAG REPLACEMENT MC SCH (08:00)
[2020-11-13] MEDS: levetiracetam 250mg tablet PO SCH (08:22)
[2020-11-13] MEDS: lactobacillus rhamnosus 10,000 MMU CELLS/CAPSULE PO SCH (08:22)
[2020-11-13] MEDS: heparin, porcine 5000 units/ml vial SQ SCH (08:23)
[2020-11-13] MEDS: moxifloxacin 0.5% ophthalmic drops 3ml EACHEYE SCH (08:24)
[2020-11-13] MEDS: erythromycin ophthalmic ointment 1gm tube EACHEYE SCH ×2 (08:25→13:30)
[2020-11-13 11:00] VITALS: BP 105/74
[2020-11-13] MEDS ORDERED: VANCOmycin 1250MG/NS 250ml Bag 250 ML IV SCH (14:00)
[2020-11-13] MEDS ORDERED: LEVE250T PO (16:53)
[2020-11-13] MEDS ORDERED: VIG0.5OS EACHEYE (16:53)
[2020-11-13] MEDS ORDERED: POLY15DR31 EACHEYE (16:53)
[2020-11-13] MEDS ORDERED: LINE600T12 PO (16:53)
[2020-11-13] MEDS ORDERED: ERYT1OIN6 EACHEYE (16:53)
[2020-11-13] MEDS ORDERED: LACT1CAP26 PO (16:53)
--- NOTE | 2020-11-13 18:15 | NUR ---
Pt Dc to home with significant order. Pt is A & O x4 and in no apparent distress. pt verbalizes understanding of all DC orders and able to teach back the importance of finishing ALL prescribed antibiotics. pt educated on drugs and offered assistance if needed. Apt refused help. Stated she does not use drugs. Pt's IV cath was removed intact. Pt happy to go home. Her significant other came to get her after shift change 1814. Pt wheeled down to the front where her friend picked her up.
[2020-11-15] MEDS ORDERED: VANCOMYCIN LEVEL IV ONE (01:30)
== END 2020-11-13 18:10 | disposition home or self-care (01) | DRG 720 ==
LOC: ER 13:10 → ED HOLD 16:45 → EDBEDREQ 21:07 → SUR 3N 22:08
PROVIDERS: ADMIT Family Medicine; ATTEND Family Medicine
DX: A40.0 Sepsis due to streptococcus, group A (principal); L03.211 Cellulitis of face; D68.9 Coagulation defect, unspecified; S00.03XA Contusion of scalp, initial encounter; G40.909 Epilepsy, unspecified, not intractable, without status epilepticus; Z90.49 Acquired absence of other specified parts of digestive tract; E87.1 Hypo-osmolality and hyponatremia; L03.213 Periorbital cellulitis; X58.XXXA Exposure to other specified factors, initial encounter; Y93.89 Activity, other specified; Y92.89 Other specified places as the place of occurrence of the external cause; Y99.8 Other external cause status; E87.6 Hypokalemia; Z66 Do not resuscitate; Z91.19 Patient's noncompliance with other medical treatment and regimen; F19.10 Other psychoactive substance abuse, uncomplicated
CPT/HCPCS: 36415; 70450; 70482; 70486; 71045; 76937; 80053; 80202; 80305; 80320; 81001; 83605; 83690; 83735; 84100; 84145; 84439; 84443; 84484; 85007; 85025; 85610; 85730; 87040; 87070; 87077; 87081; 87186; 92508; 92616; 93005; 96365; 96375; 97116; 97162; 99285; G0378; J0696; J1170; J1644; J2270; J2405; J2540; J3370; J3490; J7030; Q9967